=== PATIENT | female | born 1955 | race Caucasian/White ===

== ENCOUNTER → 2017-07-20 | Outpatient (CLI) | payer OTHER, MEDICAID | LOC: FIMAGING 14:04 | PROVIDERS: ATTEND Family Medicine | DX: Z12.31 Encounter for screening mammogram for malignant neoplasm of breast (principal) ==

== ENCOUNTER 2017-10-30 21:25 | Emergency (ER) | payer OTHER, MEDICAID ==
[2017-10-30 21:31] VITALS: BP 112/86
--- NOTE | 2017-10-30 21:51 | EDPHY ---
H & P Stated Complaint: sciatic nerve pain Time Seen by Provider: 10/30/17 21:51 - Personal History Current Tetanus/Diphtheria Vaccine: Yes Current Tetanus Diphtheria and Acellular Pertussis (TDAP): Yes - Medical/Surgical History Hx Asthma: No Hx Chronic Respiratory Disease: No Hx Diabetes: No Hx Cardiac Disease: No Hx Renal Disease: No Hx Cirrhosis: No Hx Alcoholism: No Hx HIV/AIDS: No Hx Splenectomy or Spleen Trauma: No Other PMH: hystectomy - Social History Smoking Status: Current every day smoker Constitutional: Initial Vital Signs Temperature (C) 36.4 C 10/30/17 21:26 Heart Rate 73 10/30/17 21:26 Respiratory Rate 16 10/30/17 21:26 Blood Pressure 112/86 H 10/30/17 21:26 O2 Sat (%) 95 10/30/17 21:26 O2 Delivery Mode Room Air Allergies/Adverse Reactions: codeine Allergy (Verified 10/30/17 21:30) eszopiclone [From Lunesta] Allergy (Verified 10/30/17 21:30) morphine Allergy (Verified 10/30/17 21:29) steroids Allergy (Uncoded 10/30/17 21:30) Home Medications: Medication Instructions Recorded Clonazepam 10/30/17 Effexor Xr 10/30/17 Levothyroxine 10/30/17 Seroquel 10/30/17 oxyCODONE IR [Oxycodone Ir (*)] 5 - 10 mg PO Q6 PRN #20 tab 10/30/17 Medical Decision Making ED Course/Re-evaluation: CHIEF COMPLAINT: Back pain HISTORY OF PRESENT ILLNESS: The patient is a 62 y/o female with diagnosed sciatica from an L5 disc herniation complaining of chronic back pain, worse tonight. She has had chronic back pain for several years and recently completed PT for these symptoms. She feels PT made her symptoms worse and caused her pain to spread to her left gluteal region in addition to the right side. She has not seen a neurosurgeon for these symptoms. She denies bowel or bladder incontinence , weakness, paresthesias, fever, or other complaints. REVIEW OF SYSTEMS: A 10 point review of systems was performed and is negative with the exception of the elements mentioned in the history of present illness. PHYSICAL EXAM: HR, BP, O2 Sat, RR. Temp noted General Appearance: Alert, well hydrated, appropriate, and uncomfortable- appearing. Head: Atraumatic without scalp tenderness or obvious injury Eyes: Pupils equal, round, reactive to light and accommodation, EOMI, no trauma , no injection. Nose: Atraumatic, no rhinorrhea, clear. Throat: There is no erythema or exudates, no lesions, normal tonsils, mucus membranes moist. Neck: Supple, nontender, no lymphadenopathy. Respiratory: No retractions, no distress, no wheezes, and no accessory muscle use. Lungs are clear to auscultation bilaterally. Cardiovascular: Regular rate and rhythm, no murmurs, rubs, or gallops. Good capillary refill all extremities. Gastrointestinal: Abdomen is soft, nontender, non-distended, no masses, no rebound, no guarding, no peritoneal signs. Musculoskeletal: Normal active ROM of all extremities, atraumatic. Neurological: Alert, appropriate, and interactive. The patient non-focal cranial nerves, motor, sensory, and cerebellar exam. Skin: No rashes, good turgor, no nodules on palpation. Past medical history: Sciatica Past surgical history: Denies Family history: Noncontributory Social history: Smoker, at bedside. PCP: Zulay Rao DIFFERENTIAL DIAGNOSIS: The differential diagnosis for the patient's back pain included but was not limited to musculoskeletal pain, epidural abscess, herniated disk, spinal fracture, and intra-abdominal causes including urinary system. MEDICAL DECISION MAKING: This is a 62 y/o female with chronic back pain and previously diagnosed sciatica who presents with lower back pain radiating into both hips that is worse tonight from baseline. She is neurovascularly intact. Doubt acute cauda equina syndrome. No indication for emergent MRI imaging. Plan for treatment here with 10mg PO Decadron and Percocet prepack and OxyIR script. 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 Return precautions discussed. She is comfortable with this plan. Departure - Departure Disposition: Home, Routine, Self-Care Clinical Impression: Sciatica Qualifiers: Laterality: bilateral Qualified Code(s): M54.31 - Sciatica, right side Chronic back pain Qualifiers: Back pain location: low back pain Back pain laterality: bilateral Sciatica presence: with sciatica Sciatica laterality: bilateral sciatica Qualified Code(s ): M54.42 - Lumbago with sciatica, left side Condition: Good Instructions: Oxycodone/Acetaminophen (By mouth), Sciatica (ED), Lumbar Radiculopathy (ED) Additional Instructions: 1. Take Percocet as prescribed as needed for severe pain. This medication can make you drowsy and constipated. Do not drive while using this medication. 2. Follow up with [facility] and neurosurgeon next week for reevaluation and to determine long-term treatment plan for your sciatica. 3. Return to the ED for worsening of condition. Referrals: Zulay Rao MD [Primary Care Provider] - As per Instructions Oneal Lovell MD [Medical Doctor] - As per Instructions Rob Ching [Outside] - As per Instructions Prescriptions: oxyCODONE IR [Oxycodone Ir (*)] 5 - 10 mg PO Q6 PRN #20 tab PRN Reason: Pain, Severe Report Scribed for: Fred Nicole Report Scribed by: Liudmila Dunbar Date of Report: 10/30/17 Time of Report: 21:55
[2017-10-30] MEDS ORDERED: DEXAMETHASONE 4 MG TAB PO ONE (21:59)
[2017-10-30] MEDS ORDERED: OXYCODONE/APAP 5/325MG PREPACK#4 BTL TAKEHOME ONE (22:00)
== END 2017-10-30 22:05 | disposition home or self-care (01) ==
DX: M54.31 Sciatica, right side (principal); F17.200 Nicotine dependence, unspecified, uncomplicated; G89.29 Other chronic pain

== ENCOUNTER 2018-01-08 11:08 | Emergency (ER) | payer OTHER, MEDICAID ==
--- NOTE | 2018-01-08 11:47 | EDPHY ---
H & P Stated Complaint: Diarrhea, dizziness Time Seen by Provider: 01/08/18 11:46 HPI/ROS: CHIEF COMPLAINT: Diarrhea, chronic dizziness HISTORY OF PRESENT ILLNESS: The patient presents to the ED from a primary care provider for IV fluid hydration. She suffers from chronic diarrhea and dizziness. She has been evaluated by ENT who felt the patient did not have vertigo. The patient tells me she takes no regular medications for management of her symptoms. The patient has chronic intermittent abdominal pain which is poorly localized. She does have a prior history of appendectomy. She denies cholecystectomy. REVIEW OF SYSTEMS: A comprehensive 10 point review of systems is otherwise negative aside from elements mentioned in the history of present illness. Source: Patient Exam Limitations: No limitations - Personal History Current Tetanus/Diphtheria Vaccine: Yes Current Tetanus Diphtheria and Acellular Pertussis (TDAP): Yes - Medical/Surgical History Hx Asthma: No Hx Chronic Respiratory Disease: No Hx Diabetes: No Hx Cardiac Disease: No Hx Renal Disease: No Hx Cirrhosis: No Hx Alcoholism: No Hx HIV/AIDS: No Hx Splenectomy or Spleen Trauma: No Other PMH: hysterectomy, hypothyroid, appy, - Social History Smoking Status: Current every day smoker - Physical Exam Exam: General Appearance: Alert, no distress Eyes: Pupils equal and round no pallor or injection ENT, Mouth: Mucous membranes moist Respiratory: There are no retractions, lungs are clear to auscultation Cardiovascular: Regular rate and rhythm Gastrointestinal: Mild generalized abdominal tenderness, poorly localized, no peritoneal signs Neurological: 5/5 strength noted all 4 extremities, no horizontal nystagmus Skin: Warm and dry, no rashes Musculoskeletal: Neck is supple nontender Extremities: symmetrical, full range of motion Psychiatric: Patient is oriented X 3, there is no agitation Constitutional: Initial Vital Signs Temperature (C) 36.7 C 01/08/18 11:17 Heart Rate 73 01/08/18 11:17 Respiratory Rate 16 01/08/18 11:17 O2 Sat (%) 97 01/08/18 11:17 O2 Delivery Mode Room Air Allergies/Adverse Reactions: codeine Allergy (Verified 01/08/18 11:16) eszopiclone [From Lunesta] Allergy (Verified 01/08/18 11:16) morphine Allergy (Verified 01/08/18 11:16) Home Medications: Medication Instructions Recorded Clonazepam 10/30/17 Effexor Xr 10/30/17 Levothyroxine 10/30/17 Seroquel 10/30/17 Medical Decision Making - Data Points Laboratory Results: 01/08/18 11:25 Urine Color JODY Urine Appearance HAZY Urine pH 5.0 (5.0-7.5) Ur Specific [place] 1.023 (1.002-1.030) Urine Protein NEGATIVE (NEGATIVE) Urine Ketones TRACE H (NEGATIVE) Urine Blood NEGATIVE (NEGATIVE) Urine Nitrate NEGATIVE (NEGATIVE) Urine Bilirubin NEGATIVE (NEGATIVE) Urine Urobilinogen 2.0 EU H EU (0.2-1.0) Ur Leukocyte Esterase 1+ H (NEGATIVE) Urine RBC NONE SEEN /hpf /hpf (0-3) Urine WBC 5-10 /hpf H /hpf (0-3) Ur Epithelial Cells 2+ /lpf H /lpf (NONE-1+) Hyaline Casts 1-5 /lpf /lpf (0-1) Urine Mucus TRACE /lpf /lpf (NONE-1+) Urine Glucose NEGATIVE (NEGATIVE) Departure - Departure Referrals: Zulay Rao MD [Primary Care Provider] - As per Instructions
--- NOTE | 2018-01-08 12:00 | EDPHY ---
H & P Stated Complaint: RLQ/R flank pain Time Seen by Provider: 01/08/18 11:46 HPI/ROS: CHIEF COMPLAINT: Abdominal pain HISTORY OF PRESENT ILLNESS: The patient presents to the ED with a 1 week history of progressive right-sided abdominal pain. The patient also complains of some pain and tenderness in her right paraspinal muscles. She denies any fever, vomiting or significant diarrhea. She is felt as if she mostly has constipation. She does have a prior history of hysterectomy and appendectomy. The patient reports moderate to severe pain worsened with movement. She reports subjective abdominal distension. The patient denies any melena. The patient reports her symptoms are moderate in nature. The patient does have a history of sciatica. She recently underwent an epidural steroid injection which resulted in marked improvement of her symptoms. She has no acute radicular symptoms today. REVIEW OF SYSTEMS: A comprehensive 10 point review of systems is otherwise negative aside from elements mentioned in the history of present illness. Source: Patient Exam Limitations: No limitations - Personal History Current Tetanus/Diphtheria Vaccine: Yes Current Tetanus Diphtheria and Acellular Pertussis (TDAP): Yes - Medical/Surgical History Hx Asthma: No Hx Chronic Respiratory Disease: No Hx Diabetes: No Hx Cardiac Disease: No Hx Renal Disease: No Hx Cirrhosis: No Hx Alcoholism: No Hx HIV/AIDS: No Hx Splenectomy or Spleen Trauma: No Other PMH: hysterectomy, hypothyroid, appy, - Social History Smoking Status: Current every day smoker - Physical Exam Exam: General Appearance: Elderly female, mild discomfort Eyes: Pupils equal and round no pallor or injection ENT, Mouth: Mucous membranes moist Respiratory: There are no retractions, lungs are clear to auscultation Cardiovascular: Regular rate and rhythm Gastrointestinal: Tenderness to palpation noted in the right mid quadrant and right upper quadrant Neurological: 5/5 strength noted all 4 extremities Skin: Warm and dry, no rashes Musculoskeletal: Neck is supple nontender, tenderness to palpation in the right paraspinal muscles Extremities: symmetrical, full range of motion Psychiatric: Patient is oriented X 3, there is no agitation Constitutional: Initial Vital Signs Temperature (C) 36.7 C 01/08/18 11:17 Heart Rate 73 01/08/18 11:17 Respiratory Rate 16 01/08/18 11:17 O2 Sat (%) 97 01/08/18 11:17 O2 Delivery Mode Room Air Allergies/Adverse Reactions: codeine Allergy (Verified 01/08/18 11:16) eszopiclone [From Lunesta] Allergy (Verified 01/08/18 11:16) morphine Allergy (Verified 01/08/18 11:16) Home Medications: Medication Instructions Recorded Clonazepam 10/30/17 Effexor Xr 10/30/17 Levothyroxine 10/30/17 Seroquel 10/30/17 Lidocaine [Lidoderm] 1 each TP AD PRN #15 adh..patch 01/08/18 Medical Decision Making - Diagnostics Imaging Results: Imaging Impressions Abdomen CT 01/08/18 12:48 Impression: 1. Soft tissue thickening along the right lateral aspect of the spinal sac at L3 -L4 level that could represent disk extrusion/protrusion or right ligamentum flavum hypertrophy versus synovial thickening from the facet. 2. Appendix was not visualized. 3. No evidence of bowel obstruction, ascites, or abscess. Findings discussed with Mani Ott M.D. at 14:02 hour, 01/08/2018. ED Course/Re-evaluation: The patient presents to the ED for evaluation of right-sided lower abdominal pain. The patient was noted to be tender on exam. She has unremarkable laboratory studies. The patient was taken for CT scan of the abdomen and pelvis which demonstrates no evidence of intra-abdominal pathology. The patient was treated with IV Toradol in the emergency department. The patient does have some spinal tenderness which appears to be consistent with a myofascial strain. She will also be given a prescription for lidocaine patches. At this point time I do feel the patient can be discharged home. She is given customary aftercare instructions and return precautions. Differential Diagnosis: Differential diagnosis considered includes perforation, obstruction, diverticulitis, pancreatitis, cholecystitis - Data Points Laboratory Results: Laboratory Results 01/08/18 11:55 01/08/18 11:55 01/08/18 01/08/18 01/08/18 11:55 11:55 11:25 WBC 10.17 10^3/uL H 10^3/uL (3.80-9.50) RBC 4.74 10^6/uL 10^6/uL (4.18-5.33) Hgb 15.0 g/dL g/dL (12.6-16.3) Hct 44.2 % % (38.0-47.0) MCV 93.2 fL fL (81.5-99.8) MCH 31.6 pg pg (27.9-34.1) MCHC 33.9 g/dL g/dL (32.4-36.7) RDW 13.6 % % (11.5-15.2) Plt Count 356 10^3/uL 10^3/uL (150-400) MPV 10.3 fL fL (8.7-11.7) Neut % (Auto) 71.2 % % (39.3-74.2) Lymph % (Auto) 18.5 % % (15.0-45.0) [place] % (Auto) 7.0 % % (4.5-13.0) Eos % (Auto) 2.6 % % (0.6-7.6) Baso % (Auto) 0.3 % % (0.3-1.7) Nucleat RBC Rel Count 0.0 % % (0.0-0.2) Absolute Neuts (auto) 7.25 10^3/uL H 10^3/uL (1.70-6.50) Absolute Lymphs (auto) 1.88 10^3/uL 10^3/uL (1.00-3.00) Absolute Monos (auto) 0.71 10^3/uL 10^3/uL (0.30-0.80) Absolute Eos (auto) 0.26 10^3/uL 10^3/uL (0.03-0.40) Absolute Basos (auto) 0.03 10^3/uL 10^3/uL (0.02-0.10) Absolute Nucleated RBC 0.00 10^3/uL 10^3/uL (0-0.01) Immature Gran % 0.4 % % (0.0-1.1) Immature Gran # 0.04 10^3/uL 10^3/uL (0.00-0.10) Sodium 140 mEq/L mEq/L (135-145) Potassium 4.3 mEq/L mEq/L (3.3-5.0) Chloride 106 mEq/L mEq/L (97-110) Carbon Dioxide 26 mEq/l mEq/l (22-31) Anion Gap 8 mEq/L mEq/L (8-16) BUN 18 mg/dL mg/dL (7-23) Creatinine 1.0 mg/dL mg/dL (0.6-1.0) Estimated GFR 57 Glucose 104 mg/dL H mg/dL (70-100) Calcium 9.7 mg/dL mg/dL (8.5-10.4) Total Bilirubin 0.5 mg/dL mg/dL (0.1-1.4) Conjugated Bilirubin 0.1 mg/dL mg/dL (0.0-0.5) Unconjugated Bilirubin 0.4 mg/dL mg/dL (0.0-1.1) AST 14 IU/L IU/L (14-46) ALT 20 IU/L IU/L (9-52) Alkaline Phosphatase 105 IU/L IU/L (38-126) Total Protein 6.6 g/dL g/dL (6.3-8.2) Albumin 4.0 g/dL g/dL (3.5-5.0) Lipase 54 IU/L IU/L (23-300) Urine Color JODY Urine Appearance HAZY Urine pH 5.0 (5.0-7.5) Ur Specific [place] 1.023 (1.002-1.030) Urine Protein NEGATIVE (NEGATIVE) Urine Ketones TRACE H (NEGATIVE) Urine Blood NEGATIVE (NEGATIVE) Urine Nitrate NEGATIVE (NEGATIVE) Urine Bilirubin NEGATIVE (NEGATIVE) Urine Urobilinogen 2.0 EU H EU (0.2-1.0) Ur Leukocyte Esterase 1+ H (NEGATIVE) Urine RBC NONE SEEN /hpf /hpf (0-3) Urine WBC 5-10 /hpf H /hpf (0-3) Ur Epithelial Cells 2+ /lpf H /lpf (NONE-1+) Hyaline Casts 1-5 /lpf /lpf (0-1) Urine Mucus TRACE /lpf /lpf (NONE-1+) Urine Glucose NEGATIVE (NEGATIVE) Medications Given: Discontinued Medications Ketorolac Tromethamine (Toradol) 15 mg IVP EDNOW ONE Stop: 01/08/18 14:05 Last Admin: 01/08/18 14:25 Dose: 15 mg Departure - Departure Disposition: Home, Routine, Self-Care Clinical Impression: Abdominal pain, Back strain Condition: Good Instructions: Acute Abdominal Pain (ED) Additional Instructions: Sometimes we are unable to diagnose an obvious cause of abdominal pain in the Emergency Department. Based upon our evaluation today, we see no obvious explanation for your pain. Because more serious conditions can be difficult to diagnose early in the course of their presentation, we ask that you return to the Emergency Department in 8-12 hours for a recheck if you are still having pain. This is necessary to exclude the development of a more serious condition such as appendicitis or other intra-abdominal emergency. In the event your pain markedly increases before that time or you develop intractable vomiting or fever return to the Emergency Department immediately. Take Ibuprofen or Motrin 600 mg by mouth three times a day. Lidocaine patches as prescribed for your back pain Referrals: Zulay Rao MD [Primary Care Provider] - As per Instructions
[2018-01-08 12:05] LABS: PLATELET COUNT 356 10^3/uL (150-400)
[2018-01-08] MEDS ORDERED: IOPAMIDOL (ISOVUE-300) 100 ML BTL ONE (13:09)
[2018-01-08 14:01] VITALS: BP 106/73
[2018-01-08] MEDS ORDERED: KETOROLAC 15 MG/1 ML SDV IVP ONE (14:04)
== END 2018-01-08 15:00 | disposition home or self-care (01) ==
DX: R10.31 Right lower quadrant pain (principal); S39.012A Strain of muscle, fascia and tendon of lower back, initial encounter; Y93.9 Activity, unspecified
CPT/HCPCS: 74177; 96374; 99285; J1885; Q9967

== ENCOUNTER 2018-01-15 15:27 | Emergency (ER) | payer OTHER, MEDICAID ==
[2018-01-15 15:39] VITALS: BP 144/86
--- NOTE | 2018-01-15 16:10 | EDPHY ---
General Time Seen by Provider: 01/15/18 16:03 Narrative: CHIEF COMPLAINT: Back pain, prescription problem HISTORY OF PRESENT ILLNESS: Patient presents with complaints of back pain and prescription problem. She states that she was recently here a prescribed a Lidoderm topical patch for her low back pain. She tried to feels the pharmacy, and it was reportedly $180. She states this is too expensive for that she returns here for alternative. She denies any numbness, tingling or weakness. No incontinence of bowel or bladder. No retention of bowel or bladder. No abdominal pain. No chest or back pain. She has appointments with her [facility] physician next week. No other associated complaints or modifying factors REVIEW OF SYSTEMS: 10 systems were reviewed and negative with the exception of the elements mentioned in the history of present illness. PCP: Dr. Rao SPECIALISTS: [facility] PAST MEDICAL HISTORY: Agoraphobia, PTSD, degenerative disc disease, hypothyroid PAST SURGICAL HISTORY: Appendectomy, hysterectomy SOCIAL HISTORY: Lives independently with her significant other. FAMILY HISTORY: Noncontributory EXAMINATION: General Appearance: Alert, no distress Head: normocephalic, atraumatic Cardiovascular: Regular rate good signs of perfusion. Gastrointestinal: Abdomen is soft and nontender Back: Soft tissue tenderness of lumbar spine without any midline tenderness, crepitus, step-off deformity. Range of motion is appropriate. Neurological: A&O, nonfocal, normal gait. Patellar reflexes symmetric. Strength is 5/5 in the knees, ankles and great toes. Light sensory symmetric in lower extremities Skin: Warm and dry, no rash no petechiae or purpura Extremities: Nontender, no pedal edema Psychiatric: Mood and affect normal DIFFERENTIAL DIAGNOSES: Including but not limited to chronic low back pain, degenerative disc disease, acute cord compression MDM: 4:10 p.m. Chronic back pain with visit requesting lidocaine patches. We had a very lengthy discussion regarding [id number] Lidoderm patches verses prescriptions wound. The prescription strength Lidoderm patches are too expensive for her. We discussed the differences and 1% lidocaine, she is comfortable with using the since that. Continue previous medications. Contact [facility] for further medications as needed. ED precautions for worsening pain , numbness, tingling, weakness, incontinence of bowel or bladder. SUPERVISION: This patient was independently evaluated without direct involvement of or examination by the attending physician. CONSULTATION: None - History Smoking Status: Current every day smoker - Objective Vital Signs: Initial Vital Signs Temperature (C) 98.6 F 01/15/18 15:37 Heart Rate 83 01/15/18 15:37 Respiratory Rate 16 01/15/18 15:37 Blood Pressure 144/86 H 01/15/18 15:37 O2 Sat (%) 96 01/15/18 15:37 O2 Delivery Mode Room Air Allergies/Adverse Reactions: codeine Allergy (Verified 01/15/18 15:36) eszopiclone [From Lunesta] Allergy (Verified 01/15/18 15:36) morphine Allergy (Verified 01/15/18 15:36) Home Medications: Medication Instructions Recorded Clonazepam 10/30/17 Effexor Xr 10/30/17 Levothyroxine 10/30/17 Seroquel 10/30/17 Lidocaine [Lidoderm] 1 each TP AD PRN #15 adh..patch 01/08/18 Departure - Departure Disposition: Home, Routine, Self-Care Clinical Impression: Degenerative disc disease, lumbar Condition: Good Instructions: Degenerative Disc Disease (ED), Lower Back Exercises (ED) Additional Instructions: 1. Lidoderm patches [id number] as directed. 12 hr on, 12 hr off 2. Contact [facility] for outpatient care 3. ED precautions for numbness, tingling, weakness, incontinence of bowel or bladder Referrals: Zulay Rao MD [Primary Care Provider] - As per Instructions [facility] [Outside] - As per Instructions
== END 2018-01-15 16:20 | disposition home or self-care (01) ==
DX: M51.36 Other intervertebral disc degeneration, lumbar region (principal); F17.200 Nicotine dependence, unspecified, uncomplicated